=== PATIENT | female | born 1935 | race Caucasian/White ===

== ENCOUNTER 2022-12-28 18:30 | Emergency (ER) | payer MEDICARE, SELFPAY ==
[2022-12-28 18:31] VITALS: BP 175/61; PULSE 87; RESP 17; O2SAT 99
[2022-12-28 18:32] VITALS: BP 201/63; PULSE 70; RESP 12; TEMP 35.8; O2SAT 95; BMI 30.5
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
--- NOTE | 2022-12-28 19:18 | EKG12_ITS ---
Test Reason : DYSRHYTHMIA Blood Pressure : / mmHG Vent. Rate : 065 BPM Atrial Rate : 065 BPM P-R Int : 166 ms QRS Dur : 098 ms QT Int : 438 ms P-R-T Axes : 055 022 054 degrees QTc Int : 455 ms Normal sinus rhythm Normal ECG Confirmed by PARAG BOB, REGGIE ([id number]), editor at large NETTIE VANCE ([id number]) on 01/08/2023 9:54:13 AM Referred By: VINICIO Confirmed By:REGGIE TUTTLE MD
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
[2022-12-28 19:39] LABS: Absolute Lymphocyte Count 1.53 X10^3/uL (0.83-4.51); Absolute Neutrophil Count 7.5 X10^3/uL (2.0-7.7); Basophil# 0.04 X10^3/uL; Basophil% 0.4 % (0-1); Eosinophil# 0.24 X10^3/uL; Eosinophils% 2.4 % (0-5); Hematocrit 38.5 % (37-47); Hemoglobin 12.4 g/dL (12.0-15.0); Lymphocyte # 1.53 X10^3/ul (0.83-4.51); Lymphocyte % 15.4 % (19-41); Mean Corp Hgb Conc 32.2 g/dL (32-36); Mean Corpuscular Hgb 27.6 pg (27.0-32.0); Mean Corpuscular Volume 85.7 fL (81-99); Mean Platelet Vol. 9.8 fl (6.2-12.0); Monocyte# 0.61 X10^3/uL; Monocyte% 6.1 % (0-10); NRBC Flagged by Analyzer 0 % (0-5); Neutrophil # 7.45 X10^3/uL (2.7-7.7); Neutrophil % 75.1 % (47-70); Platelet Count 166 K/mm3 (150-450); RBC Distribution Width CV 12.5 % (11.6-14.6); RBC Distribution Width SD 38.6 fl (35.1-43.9); Red Blood Count 4.49 M/mm3 (4.2-5.4); White Blood Count 9.9 K/mm3 (4.4-11.0)
[2022-12-28 19:57] LABS: Anion Gap 4 (5-15); BUN 26 mg/dL (7-18); BUN/Creat Ratio 20.8 RATIO (10-20); Calcium,Total 9.4 mg/dL (8.5-10.1); Chloride 100 mmol/L (98-107); Creatinine, Serum 1.25 mg/dL (0.55-1.02); EST Glomerular Filtration Rate 43 mL/min (>60); Est Glom Filt Rate - Afr Amer 52 mL/min (>60); Estimated Creatinine Clearance 23.21 ml/min; Glucose 220 mg/dL (74-106); Potassium 3.9 mmol/L (3.5-5.1); Sodium Level 134 mmol/L (136-145)
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
[2022-12-28 21:03] VITALS: BP 158/71; PULSE 67; RESP 18; O2SAT 96
[2022-12-28] MEDS: Acetaminophen 500 MG Tablet 1000 MG PO (21:16)
== END 2022-12-28 21:18 | disposition home or self-care (01) ==
PROVIDERS: Emergency Provider Emergency Medicine; Visit Provider Emergency Medicine
DX: S30.1XXA Contusion of abdominal wall, initial encounter (principal); E11.9 Type 2 diabetes mellitus without complications; E78.5 Hyperlipidemia, unspecified; S80.211A Abrasion, right knee, initial encounter; Y92.410 Unspecified street and highway as the place of occurrence of the external cause; S20.20XA Contusion of thorax, unspecified, initial encounter; S80.212A Abrasion, left knee, initial encounter; V43.52XA Car driver injured in collision with other type car in traffic accident, initial encounter; I10 Essential (primary) hypertension; W22.10XA Striking against or struck by unspecified automobile airbag, initial encounter; Z90.710 Acquired absence of both cervix and uterus
CPT/HCPCS: 70450; 71250; 72125; 73564; 74176; 80048; 85025; 93005; 99285; A4216